=== PATIENT | female | born 2005 | race Two or more races ===

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

== ENCOUNTER 2025-02-10 09:04 | Outpatient (REF) | payer MEDICAID, OTHER, SELFPAY ==
--- NOTE | ~2025-02-10 | US_ITS ---
EXAMINATION: US COMPLETE ABDOMEN WITH LIVER ELASTOGRAPHY CLINICAL INFORMATION: Transaminitis COMPARISON: None available. TECHNIQUE: Real-time imaging of the abdominal viscera. Noninvasive ultrasound liver fibrosis assessment is performed using Jeanne ElastPQ point quantification shear wave elastography (pSWE) with a C5-2 MHz transducer. Multiple elastography samples are obtained. FINDINGS: PANCREAS: The visualized pancreatic head and body are normal in appearance. The remainder of the pancreas is obscured from visualization by the overlying bowel gas. ABDOMINAL AORTA: No aortic aneurysm is seen. INFERIOR VENA CAVA: Visualized portions are normal. LIVER: The liver demonstrates normal contour. Diffuse increased parenchymal echogenicity.. No focal lesion or intrahepatic biliary duct dilatation. The right lobe measures 17.5 cm in length. The left lobe measures 11.4 cm in length. Portal flow is hepatopedal Shear wave liver elastography median stiffness is 1.32 m/s (reference: normal median stiffness is 1.3 m/s or less). IQR/median stiffness to assess sampling precision is 0.09 (reference: good quality data set is IQR/median stiffness of 0.15 or less). GALLBLADDER: The gallbladder is physiologically distended without evidence of stones, sludge, polyps, wall thickening or pericholecystic fluid. COMMON BILE DUCT: Normal in caliber measuring 0.4 cm in diameter. RIGHT KIDNEY: No hydronephrosis. No renal calculi or focal parenchymal lesions. The kidney measures 10.4 cm in maximum dimension. LEFT KIDNEY: No hydronephrosis. No renal calculi or focal parenchymal lesions. The kidney measures 10.7 cm in maximum dimension. SPLEEN: Unremarkable. The spleen measures 12.9 cm in maximum dimension. FREE FLUID: None seen. US/US abdomen comp w elastography IMPRESSION: 1. Right lobe measures 17.5 cm. There is generalized increase in hepatic echotexture, consistent with fatty infiltration or hepatocellular disease. Please correlate clinically. No focal hepatic mass or intrahepatic biliary duct dilatation is seen. . 2. Liver elastography: Median stiffness measures 1.32 m/s REFERENCE: Society of Radiologists in Ultrasound Liver Stiffness Thresholds (2019): LIVER STIFFNESS THRESHOLDS: *Liver Stiffness equal or less than 1.3 m/s: High probability of being normal. *Liver Stiffness less than 1.7 m/s: In the absence of other known clinical signs, rules out compensated advanced chronic liver disease. *Liver Stiffness 1.7-2.1 m/s: Suggestive of compensated advanced chronic liver disease but need further test for confirmation. *Liver Stiffness over 2.1 m/s: Rules in compensated advanced chronic liver disease. *Liver Stiffness over 2.4 m/s: Suggestive of clinically significant portal hypertension. QUALITY OF DATA SET: *IQR/Median value equal or less than 0.15 implies a quality data set. *IQR/Median value over 0.15 implies a poor quality data set. SIGNIFICANT CHANGE FROM PRIOR EXAM: Significant change if liver stiffness measurement is 10% or greater from prior exam. OTHER CONSIDERATIONS: The stage of liver fibrosis may be overestimated in the setting of acute hepatitis, liver inflammation, elevated liver function tests, hepatic vascular congestion, obstructive cholestasis, non-fasting state, and infiltrative diseases such as amyloidosis and lymphoma. In some patients with NAFLD, the liver stiffness thresholds for compensated advanced chronic liver disease may be lower. In causes other than viral hepatitis and NAFLD, liver stiffness thresholds are not well established. Electronically signed by: Greg Loza MD 02/10/2025 10:25 AM EDT
--- OUTSIDE RECORDS SUMMARY | 2025-02-10 10:11 | XMS_ITS | Encounter Summary ---
Author Organization [employer] Address [address] [place] [address] [address], [place] [address] Care Team Providers Care Human Resources Intern Name Role Phone Unavailable Primary Care Provider Unavailabl e Reason for Referral * Imaging (Routine) - Authorized Specialty Diagnoses / Procedures Referred By Contac t Referred To Contact Radiology Diagnoses Transaminitis Procedures US Abdomen Comp w elastography Jh Coello MD [address] [place] [address] Phone: tel: fax: [address] Phone: tel: fax: Referral ID Status Reason Start Date Expiration Date V isits Requested Visits Authorized [id number] Authorized 12/10/2024 12/10/2025 1 1 Encounter Details Date Type Department Care Team (Late st Contact Info) Description 12/10/2024 Orders Only [facility] [address] [place] [address] Jh Coello MD [address] [place] [address] Transaminitis (Primary Dx) Social History Tobacco Use Types Packs/Day Years Used Date Smoking Tobacco: Never Passive Smoke Exposure: Never Smokeless Tobacco: Never Comments Unknown Sex and Gender Information Value Date Recorded Sex Assigned at Female 12/09/2024 11:56 AM EDT Legal Sex Female 11:53 AM EDT Gender Identity Female 12/09/2024 11:56 AM EDT Sexual Orientation Straight 12/09/2024 11 :56 AM EDT documented as of this encounter Plan of Treatment Upcoming Encounters Date Type Department Care Team (Late st Contact Info) Description 03/07/2025 10:15 AM EDT Office Visit [facility] [address] [place] [phone] Leann Faria MD [address] [place], [place] [phone] Scheduled Orders Name Type Priority Associated Diagnoses Orde r Schedule Smooth Muscle Antibody with Reflex to Titer Lab Routine Transaminitis Expected: 12/10/2024 (Approximate), Expires: 12/10/2025 Immunoglobulins, Quantitative, IgA, IgG, IgM Lab Routine Transaminitis Expected: 12/10/2024 (Approximate), Expires: 12/10/2025 Prothrombin Time-INR Lab Routine Transaminitis Expected: 12/10/2024, Expires: 12/10/2025 Ferritin Lab Routine Transaminitis Expected: 12/10/2024, Expires: 12/10/2025 Iron And Total Iron Binding Capacity Lab Routine Transaminitis Expected: 12/10/2024, Expires: 12/10/2025 Alpha 1 Antitrypsin Lab Routine Transaminitis Expected: 12/10/2024 (Approximate), Expires: 12/10/2025 Hepatitis B Surface Antibody, Qualitative Lab Routine Transaminitis Expected: 12/10/2024 (Approximate), Expires: 12/10/2025 US Abdomen Comp w elastography Imaging Routine Transaminitis Expected: 12/10/2024, Expires: 12/10/2025 Hepatitis Panel, General Lab Routine Transaminitis Expected: 12/10/2024, Expires: 12/10/2025 documented as of this encounter Visit Diagnoses Diagnosis Transaminitis- Primary Nonspecific elevation of levels of transaminase or lactic acid dehydrogenase (LDH) documented in this encounter
--- OUTSIDE RECORDS SUMMARY | 2025-02-10 10:11 | XMS_ITS | Clinical Summary ---
Author Organization [employer] Address [address] [facility] [address] [place] [address] Care Team Providers Care Group Home Counselor Name Role Phone Unavailable Primary Care Provider Unavailabl e Allergies No known active allergies Medications meloxicam (Mobic) 7.5 MG tabletIndication s:Chronic flank pain Take 1 tablet (7.5 mg) by mouth Once per day. 30 tablet 12/09/2024 Active Active Problems No known active problems Encounters Date Type Department Care Team Description 12/11/2024 Results Follow-Up [facility] [address] [place] [address] Germaine Mena RN POCT urinalysis dipstick manually resulted, POCT , urine manually resulted, Comprehensive Metabolic Panel, CBC auto differential 12/10/2024 Orders Only [facility] [address] [place] [address] Jh Coello MD Transaminitis (Primary Dx) 12/09/2024 1:00 PM EDT Office Visit [facility] [address] [place] [address] Jh Coello MD Chronic flank pain (Primary [...] Description 03/07/2025 10:15 AM EDT Office Visit [facility] [address] [place] [address] [phone] Leann Faria MD [address] [place] [address] Health Maintenance Due Date Last Done Comments [...] - Standard) 2021 Hepatitis C Screening 11/17/2023 DTaP/Tdap/Td Vaccines (1 - Tdap) 2024 Hepatitis B Vaccines (1 of 3 - 19+ 3-dose series) 2024 COVID-19 Vaccine (1 - 2023-2 5 season) 2025 Influenza Vaccine (#1) 2025 Tobacco Screening 12/09/2025 [...] Procedure Name Priority Date/Time Associated Diagnosis Comments CBC WITH AUTO DIFFERENTIAL Routine 12/09/2024 1:37 PM EDT Chronic flank pain COMPREHENSIVE METABOLIC PANEL Routine 12/09/2024 1:37 PM EDT Chronic flank pain POCT , URINE Routine 12/09/2024 1:32 PM EDT Chronic flank pain POCT URINALYSIS DIPSTICK Routine 12/09/2024 1:32 PM EDT Chronic flank pain from Last 3 Months Results * (ABNORMAL) CBC auto differential (12/09/2024 1:37 PM EDT) White Blood Count 8.4 4.8 - 10.8 X10*3/uL [facility] Red Blood Count 4.78 4.20 - 5.50 X10*6/uL [facility] Hemoglobin 13.8 12.0 - 16.0 g/dl [facility] Hematocrit 41.5 37.0 - 47.0 % [facility] Mean Corpuscular Volume 86.8 80.0 - 98.0 fL [facility] Mean Corpuscular Hemoglobin 28.9 27.0 - 33.0 pg [facility] Mean Corpuscular HGB Conc 33.3 31.0 - 35.0 g/dl [facility] Red Cell Distribution Width 12.1 11.0 - 16.0 % [facility] Platelet Count 440(H) 160 - 400 X10*3/uL [facility] Mean Platelet Volume 10.3 9.4 - 12.3 fL [facility] Neutrophils Percent Auto 57.9 45 - 73 % [facility] Imm Gran Pct Auto 0.4 0.0 - 0.4 % [facility] Lymphocytes Percent Auto 33.7 20 - 40 % [facility] Monocytes Percent Auto 4.7 2 - 11 % [facility] Eosinophils Percent Auto 2.6 0 - 4 % [facility] Basophils Percent Auto 0.7 0 - 2 % [facility] NRBC Pct Auto 0.0 0.0 - 0.2 /100WBC [facility] Neutrophils Absolute Auto 4.8 2.0 - 8.3 x10*3/uL [facility] Imm Gran Abs Auto 0.03 0.00 - 0.03 X10*3/uL [facility] Lymphocytes Absolute Auto 2.8 1.2 - 4.9 X10*3/uL [facility] Monocytes Absolute Auto 0.4 0.1 - 1.2 X10*3/uL [facility] Eosinophils Absolute Auto 0.2 0.0 - 0.4 X10*3/uL [facility] Basophils Absolute Auto 0.1 0.0 - 0.2 X10*3/uL [facility] NRBC Abs Auto 0.000 0.0 - 0.012 X10*3/uL [facility] Blood Venous blood specimen / Unknown 12/09/2024 1:37 PM EDT 12/09/2024 4:11 PM EDT Jh Coello MD LAB BLOOD ORDERABLES Final Result [facility] [address] [place] [address] [phone] * (ABNORMAL) Comprehensive Metabolic Panel (12/09/2024 1:37 PM EDT) Sodium 138 135 - 145 mmol/L [facility] Potassium 3.9 3.3 - 5.1 mmol/L [facility] Chloride 104 96 - 108 mmol/L [facility] Carbon Dioxide 25 22 - 29 mmol/L [facility] Anion Gap 13 12 - 20 [facility] Urea Nitrogen (BUN) 11 9 - 16 mg/dL [facility] Creatinine, Serum 0.66 0.5 - 1.4 mg/dL [facility] Estimated Glomerular Filt Rate >60 [facility] Comment:Chronic Kidney Disea se: Estimated GFR < 60 mL/min/[id number] Kidney Disease: Estimated GFR < 15 mL/min/1.73m2 Glucose 160(H) 60 - 115 mg/dL [facility] Calcium 9.8 8.4 - 10.2 mg/dL [facility] Bilirubin, Total 0.5 0.0 - 1.0 mg/dL [facility] Aspartate Amino Transferase 93(H) 5 - 31 U/L [facility] Alanine Aminotransferase 162(H) 0 - 31 U/L [facility] Total Protein 8.4(H) 6.5 - 8.0 g/dL [facility] Albumin Level 5.0 3.5 - 5.0 g/dL [facility] Alkaline Phosphatase 143(H) 39 - 117 U/L [facility] Blood Venous blood specimen / Unknown 12/09/2024 1:37 PM EDT 12/09/2024 4:11 PM EDT us Jh Coello MD LAB BLOOD ORDERABLES Final Result [facility] [address] [place] [address] [phone] * POCT , urine manually resulted (12/09/2024 [...] Final Result from Last 3 Months Insurance [facility] FULL [facility] LIMITED
== END 2025-02-10 09:05 | disposition home or self-care (01) ==
LOC: HO.US 09:04
PROVIDERS: PCP Internal Medicine; Visit Provider Internal Medicine
DX: R74.01 Elevation of levels of liver transaminase levels (principal)
CPT/HCPCS: 76700; 76981

== ENCOUNTER → 2025-02-10 09:08 | Outpatient (BNV) | payer SELFPAY | PROVIDERS: PCP Internal Medicine; Visit Provider Radiology Diagnostic Ultrasound | DX: K76.89 Other specified diseases of liver (principal) | CPT/HCPCS: 76700 ==